=== PATIENT | female | born 1985 | race African-American/Black ===

== ENCOUNTER 2017-01-09 07:58 | Emergency (ER) | payer MEDICAID ==
[2017-01-09 08:27] LABS: Bilirubin Negative (Negative); Blood, Urine Negative (Negative); Glucose, Urine (Dipstick) Negative (Negative); Ketone, Urine Negative (Negative); Nitrite Negative (Negative); Protein, Urine (Dipstick) Negative (Neg-Trace)
[2017-01-09 08:31] LABS: Bacteria/HPF None Seen HPF (None Seen); Hyaline Casts/LPF 0-3 HYALINE CAST LPF (0-3 Hyaline); WBC/HPF 0-3 HPF (0-3)
[2017-01-09] MEDS ORDERED: Lidocaine 1% PF 5 ML VIAL ONE (08:51)
[2017-01-09] MEDS ORDERED: Azithromycin 250 MG TAB ONE (08:51)
[2017-01-09] MEDS ORDERED: cefTRIAXone\\ROCEPHIN 250 MG VIAL ONE (08:51)
== END 2017-01-09 09:20 | disposition home or self-care (01) ==
LOC: ERS 07:58
DX: N72 Inflammatory disease of cervix uteri (principal)
CPT/HCPCS: 81003; 81015; 81025; 87480; 87491; 87510; 87591; 87660; 96372; J0696; J2001

== ENCOUNTER 2019-03-28 07:19 | Emergency (ER) | payer MEDICAID, OTHER | END 2019-03-28 08:13 | disposition home or self-care (01) | LOC: ERS 07:19 | DX: B34.9 Viral infection, unspecified (principal) | CPT/HCPCS: 99283 ==